=== PATIENT | male | born 2000 | race Caucasian/White ===

== ENCOUNTER 2024-04-16 11:02 | Emergency (ER) | payer BC, SELFPAY ==
--- NOTE | ~2024-04-16 | CT_ITS ---
EXAMINATION: CT abdomen pelvis w con DATE: 04/16/2024 11:50 INDICATION: Umbilical abdominal pain TECHNIQUE: Computed tomography (CT) of the abdomen and pelvis was performed with 100 mL Omnipaque-350 intravenous contrast. Automated exposure control and iterative reconstruction technique were employe d. The dose-length product was 259.69 mGy-cm. COMPARISON: None FINDINGS: Lung bases are clear. Heart size is normal. No pericardial or pleural effusion. Pectus excavatum. Lakshmi er, gallbladder, spleen, pancreas, bilateral adrenal glands and kidneys are normal. Bowels including the appendix are normal. Bladder is normal. There is asymmetric enlargement of the left seminal vesic le relative to the right. No free intraperitoneal gas or fluid. No pathologically enlarged abdominal or pelvic lymphadenopathy. Bones are unremarkable. IMPRESSION: 1. Asymmetric enlargement of the left seminal vesicle suspicious for seminal vesiculitis. No other ac romana intra-abdominal/pelvic process. Reviewed, dictated and finalized at location A. IMPRESSION: 1. Asymmetric enlargement of the left seminal vesicle suspicious for seminal ve siculitis. No other acute intra-abdominal/pelvic process.
[2024-04-16 11:05] VITALS: BP 148/84; PULSE 77; RESP 18; TEMP 36.4; O2SAT 100
--- NOTE | 2024-04-16 11:17 | ED.ABDPAIN ---
HPI - Abdominal Pain General Chief Complaint: Abdominal Pain Stated Complaint: stomach pain since last Time Seen by Provider: 04/16/24 11:08 History of Present Illness HPI narrative: 23-year-old male presents to emergency department with his mother at bedside for abdominal pain for 6 days. Patient states the pain is located in his periumbilical region and is intermittent in nature. Describes the pain as sharp. States it is worse with eating and better after having a bowel movement. States his stools have been small in caliber. Last bowel movement was today and normal. Reports nausea and vomiting at the onset of symptoms that has since resolved. Denies fever , dysuria or hematuria. No prior abdominal surgeries. Related Data Allergies Allergy/AdvReac Type Severity Reaction Status Date / Time clarithromycin Allergy Unknown Unknown Verified 04/16/24 11:22 Review of Systems Review of Systems: All systems reviewed & are unremarkable except as noted in HPI and below PMFSH Past Medical History Medical History Allergic dermatitis eyelid Body mass index (BMI) less than 20 Melancholy Work-related stress Family History Family History Grandparent Hypertension Carcinoma of colon Diabetes mellitus Father No problems noted. Mother No problems noted. Sibling No problems noted. Social History Social History Smoking status: Never smoker Second hand tobacco smoke exposure: No Alcohol intake: current Substance use: current Substance use type: marijuana Lack of Transportation: No Lack of Food: Never True Current Housing: I Have Housing Concerned About Future Housing: No Difficulty Paying Gas/Electric Bills: No Difficulty Paying for Meds: No Currently Unemployed: No Education: High School Diploma/GED Difficulty w/ Childcare or Family Care: No Living arrangements: with roommate(s) Occupation/Education: occupation Additional occupation/education comments: [employer] Gender identity (if verbalized by the patient): Male Exam Narrative: GENERAL: anxious appearing acute distress HEAD: Normocephalic, atraumatic. ENT: Nares clear, no rhinorrhea or epistaxis. Mucous membranes moist. NECK: Supple. CHEST: Clear to auscultation. No respiratory distress. HEART: Regular rate and rhythm. No murmur heard. Normal peripheral pulses. ABDOMEN: normoactive bowel sounds. Abdomen soft with mild tenderness in the suprapubic region. No rebound guarding or rigidity. No CVA tenderness. EXTREMITIES: Normal range of motion. No edema. SKIN: Warm, dry, no rash. NEURO: No focal deficits. Alert and oriented x3 Course Vital Signs Vital signs: Vital Signs Temperature 97.6 F 04/16/24 11:05 Pulse Rate 77 04/16/24 11:05 Respiratory Rate 18 04/16/24 11:05 Blood Pressure 148/84 H 04/16/24 11:05 Pulse Oximetry 100 04/16/24 11:05 Oxygen Delivery Room Air 04/16/24 11:05 Temperature 97.6 F 04/16/24 11:05 Pulse Rate 77 04/16/24 11:05 Respiratory Rate 18 04/16/24 11:05 Blood Pressure 148/84 H 04/16/24 11:05 Pulse Oximetry 100 04/16/24 11:05 Oxygen Delivery Room Air 04/16/24 11:05 MDM - Abdominal Pain MDM Narrative Medical decision making narrative: 23-year-old male presents to the ED for intermittent periumbilical abdominal pain and small BMs for 6 days. Better after our being a bowel movement, worse after eating. Triage vitals stable. Patient is afebrile nontoxic appearing. He is anxious appearing. Abdomen soft with mild tenderness in the periumbilical region. will obtain lab work and CT abdomen pelvis for further evaluation. Toradol And Bentyl provided. CBC without leukocytosis. Chemistries are unremarkable. Lipase normal. UA with elevated specific gravity, no wbc's or rbc's. CT abdomen pelvis shows asy
[2024-04-16 11:25] LABS: Basophils Percent Auto 0.6 % (0.2-1.2); Eosinophils Absolute Auto 0.1 K/mm3 (0-0.3); Hematocrit 42.3 % (42.0-52.0); Hemoglobin 14.7 g/dL (14.0-18.0); Immature Granulocyte Absolute 0.01 K/mm3 (0.00-0.031); Immature Granulocyte Percent A 0.2 % (0-0.5); Lymphocytes Absolute Auto 1.82 K/mm3 (0.9-3.2); Lymphocytes Percent Auto 36.8 % (18.3-44.2); Mean Corpuscular HGB Conc 34.8 g/dl (32-36); Mean Corpuscular Hemoglobin 31.3 pg (26-34); Mean Platelet Volume 10.3 fl (7.4-10.4); Monocytes Absolute Auto 0.5 K/mm3 (0.1-0.6); Monocytes Percent Auto 10.7 % (2.6-8.5); Neutrophils Absolute Auto 2.5 K/mm3 (1.3-6.7); Neutrophils Percent Auto 49.7 % (45.5-73.1); Platelet Count Result 255 k/mm3 (150-375); Red Cell Distribution Width 11.9 % (11.5-14.5)
[2024-04-16] MEDS: DICYCLOMINE HCL 10 MG CAPSULE 20 MG PO (11:32)
[2024-04-16] MEDS: KETOROLAC 15 MG/ML VIAL (*BKC) IV PUSH (11:32)
[2024-04-16 11:35] LABS: Alanine Aminotransferase 24 U/L (6-50); Alkaline Phosphatase 89 U/L (38-126); Anion Gap 13 mmol/L (4-12); Aspartate Amino Transferase 31 U/L (17-59); Bilirubin,Total 0.5 mg/dL (0.2-1.3); Blood Urea Nitrogen 16 mg/dL (9-20); Calcium 9.7 mg/dL (8.4-10.2); Carbon Dioxide 23 mmol/L (22-30); Chloride 105 mmol/L (98-107); Estimated Glomerular Filt Rate > 60; Glucose 89 mg/dL (65-110); Lipase 89 U/L (23-300); Potassium 4.6 mmol/L (3.4-5.0); Sodium 141 mmol/L (137-145)
[2024-04-16 12:58] LABS: Add Urine Microscopic? NO; Appearance Urine Clear (Clear); Bilirubin Urine Negative (Negative); Blood Urine Negative (Negative); Color Urine Yellow (Yellow); Glucose Urine UA Negative (Negative); Ketones Urine Negative (Negative); Leukocyte Esterase Ur Negative LEU/UL (Negative); Nitrate Urine Negative (Negative); Protein Urine Negative (Negative); Specific Grav Ur > 1.045 (1.001-1.035); Urobilinogen Urine 0.2 mg/dL (<2.0); pH Urine 5.5 (5.0-9.0)
== END 2024-04-16 13:50 | disposition home or self-care (01) ==
PROVIDERS: Emergency Provider Physician Assistant; PCP Family Medicine
DX: R10.33 Periumbilical pain (principal)
CPT/HCPCS: 36415; 74177; 80053; 81003; 83690; 85025; 96374; 99284; A9270; J1885; Q9967

== ENCOUNTER 2025-06-29 00:37 | Day surgery (SDC) | payer BC, SELFPAY ==
[2025-06-08 12:09] VITALS: BMI 19.6
[2025-06-29 12:53] VITALS: BP 122/77; PULSE 75; RESP 16; TEMP 36.4; O2SAT 100; BMI 18.1
[2025-06-29] MEDS: LACTATED RINGERS 1,000 ML 150 ML IV CONT (13:00)
--- NOTE | 2025-06-29 13:42 | P.HP_ITS ---
History of Present Illness History of Present Illness Consent: Risks, benefits, and alternatives have been discussed and questions answered. Patient agrees to proceed with procedure. Chief complaint: Hemorrhage of anus and rectum Narrative: Edvin Adams is a 24 year old male here for first colonoscopy, perianal discomfort and few occasions noted blood after wiping, also family history of colon cancer in paternal side Review of Systems Review of Systems: All systems reviewed & are unremarkable except as noted in HPI and below PMFSH Past Medical History Medical History Melancholy Work-related stress Body mass index (BMI) less than 20 Allergic dermatitis eyelid Family History Family History Grandparent Hypertension Carcinoma of colon Diabetes mellitus Father No problems noted. Mother No problems noted. Sibling No problems noted. Social History Social History (Updated 05/05/25 @ 08:51 by Fabi Webster) Smoking status: Current every day smoker Tobacco type: e-cigarettes/vaping Second hand tobacco smoke exposure: No Alcohol intake: never Substance use: current Substance use type: does not use and marijuana Other substance usage details: 1-2 daily Lack of Transportation: No Lack of Food: Never True Current Housing: I Have Housing Concerned About Future Housing: No Difficulty Paying Gas/Electric Bills: No Difficulty Paying for Meds: No Currently Unemployed: No Education: High School Diploma/GED Difficulty w/ Childcare or Family Care: No Living arrangements: with family Occupation/Education: occupation Additional occupation/education comments: [employer] Gender identity (if verbalized by the patient): Male Spiritual care concerns: No Meds Home Medications and Allergies Home Medications ?Medication ?Instructions ?Recorded ?Confirmed ?Type polyethylene glycol 3350 17 17 g PO DAILY #510 grams 0 04/02/25 06/29/25 Rx gram/dose oral powder (Miralax) hydrocortisone 2.5 % topical cream 1 applic RECTAL GABRIELLA LY PRN pain #30 05/05/25 06/29/25 Rx with perineal applicator grams (Anusol-HC) Allergies Allergy/AdvReac Type Severity Reaction Status Date / Time clarithromycin Allergy Unknown Unknown Verified 06/29/25 12:51 Vital Signs Vital Signs - 24 hr 06/29/25 12:53 Temperature 97.6 F Pulse Rate 75 Respiratory Rate 16 Blood Pressure 122/77 Pulse Oximetry 100 Oxygen Delivery Room Air Exam Const: General: comfortable and no acute distress HENMT: Face/Nose/Sinus: Normal nares present Eyes: General: appearance normal, both eyes and all related structures Resp: Auscultation: clear to auscultation bilaterally Cardio: Rate: regular rate Rhythm: regular rhythm GI: Inspection: non-distended GI Palp: Yes Soft to palpation Skin: General skin exam: normal color Extrem: General: normal to inspection Psych: Mental Status: mental status grossly normal Assessment and Plan Assessment and plan (1) Rectal bleeding: Code(s): K62.5 - Hemorrhage of anus and rectum Status: Acute Assessment and Plan: colonoscopy
--- NOTE | 2025-06-29 13:56 | S_PTH ---
PATIENT: Edvin Adams LOC: [facility]#:[id number] AGE/SX: 24/M ROOM: RE06/29/[address]: Jose Hammond MD : [id number] BED: DIS: 06/29/2025 SPEC #: [id number] RECD: 06/29/25 14:29 STATUS: CAMILA REMelissa #: [id number] SAMUEL: 06/29/25 13:[address]: Jose Hammond DEPT: [facility] Surgical RECD BY: Lolly Shaver ENTERED: 06/29/25 14:30 SP TYPE: Surgical OTHR DR: Gabe Rodriges MD Tissues: A - Colon Biopsy Procedures: Hematoxylin and Eosin Stain Gross and Microscopic Level 4
[2025-06-29 13:58] VITALS: BP 92/42; PULSE 60; RESP 29; O2SAT 98
--- NOTE | 2025-06-29 14:03 | P.PNAN_ITS ---
Anes - Initial Pre Proc Eval Procedure: Operation Date: 06/29/25 14:00 Proposed Procedures p Diagnostic Colonoscopy - Jose Hammond MD Date/Time: 06/29/25 14:03 Surgeon: Jose Hammond MD Pre Op Diagnosis: Hemorrhage of anus and rectum Patient Data Age: 24 Gender: M Height: 1.8 m Weight: 59 kg Last Vital Signs Temp 36.4 C 06/29/25 12:53 Pulse 60 06/29/25 13:58 Resp 29 H 06/29/25 13:58 BP 92/42 L 06/29/25 13:58 Pulse Ox 98 06/29/25 13:58 O2 Del Method Room Air 06/29/25 13:58 Allergies Allergy/AdvReac Type Severity Reaction Status Date / Time clarithromycin Allergy Unknown Unknown Verified 06/29/25 12:51 Home Medications ?Medication ?Instructions ?Recorded ?Confirmed ?Type polyethylene glycol 3350 17 17 g PO DAILY #510 grams 0 04/02/25 06/29/25 Rx gram/dose oral powder (Miralax) hydrocortisone 2.5 % topical cream 1 applic RECTAL GABRIELLA LY PRN pain #30 05/05/25 06/29/25 Rx with perineal applicator grams (Anusol-HC) Patient hx anesthesia problems: none Family hx anesthesia problems: none Results Review: All pre-operative results and documents have been reviewed as part of the pre- operative evaluation. [facility] Past Medical History Medical History Melancholy Work-related stress Body mass index (BMI) less than 20 Allergic dermatitis eyelid Family History Family History Grandparent Hypertension Carcinoma of colon Diabetes mellitus Father No problems noted. Mother No problems noted. Sibling No problems noted. Social History Social History (Updated 05/05/25 @ 08:51 by Fabi Webster) Smoking status: Current every day smoker Tobacco type: e-cigarettes/vaping Second hand tobacco smoke exposure: No Alcohol intake: never Substance use: current Substance use type: does not use and marijuana Other substance usage details: 1-2 daily Lack of Transportation: No Lack of Food: Never True Current Housing: I Have Housing Concerned About Future Housing: No Difficulty Paying Gas/Electric Bills: No Difficulty Paying for Meds: No Currently Unemployed: No Education: High School Diploma/GED Difficulty w/ Childcare or Family Care: No Living arrangements: with family Occupation/Education: occupation Additional occupation/education comments: [employer] Gender identity (if verbalized by the patient): Male Spiritual care concerns: No Anes - Eval Final PreProcedure Day of Procedure 06/29/25 14:03 Patient weight: normal Heart: regular rate and rhythm Lungs: clear to auscultation and normal air movement Airway: Mallampati scale class II Neurological: alert and oriented Last oral intake: >/= 8 hours ASA classification: I Emergent: no Anesthetic plan: proceed Anesthesia type and monitoring: general GIVS and standard monitoring Results Review: All pre-operative results and documents have been reviewed as part of the pre- operative evaluation. Informed Consent: The patient's anesthetic plan and its attendant risks and benefits were discussed with the patient/family/POA. Questions were solicited and answers provided to the satisfaction of the patient/family/POA.
[2025-06-29 14:08] VITALS: BP 97/60; PULSE 57; RESP 23; O2SAT 97
[2025-06-29 14:18] VITALS: BP 103/64; PULSE 59; RESP 20; O2SAT 100
== END 2025-06-29 14:33 | disposition home or self-care (01) ==
PROVIDERS: PCP Family Medicine; Referring Provider Family Medicine; Visit Provider Internal Medicine Gastroenterology
PROC: 0DJD8ZZ Inspection of Lower Intestinal Tract, Via Natural or Artificial Opening Endoscopic (ICD-10-PCS; CPT 45378; principal; 2025-06-29 14:00)
DX: K92.1 Melena (principal); R19.7 Diarrhea, unspecified; K59.00 Constipation, unspecified; K64.8 Other hemorrhoids; F17.290 Nicotine dependence, other tobacco product, uncomplicated; F12.90 Cannabis use, unspecified, uncomplicated
CPT/HCPCS: 45380; 88305; J2704; J7120